=== PATIENT | female | born 1935 | race Caucasian/White ===

== ENCOUNTER → 2016-12-10 | Outpatient (CLI) | payer MEDICARE, OTHER ==
--- NOTE | 2016-12-10 15:38 | RAD ---
EXAM DESCRIPTION: Knee,Right Complete CLINICAL HISTORY: 81 yearsFemale, Bilateral primary osteoarthritis of knee COMPARISON: None. IMPRESSION: Patient is status post right knee arthroplasty. Hardware is appropriately positioned. No fracture noted. No osteolysis. Electronically signed by: Germán Canas MD 12/10/2016 3:37 PM GREENSKEEPER
--- NOTE | 2016-12-10 15:38 | RAD ---
EXAM DESCRIPTION: Knee,Left Complete CLINICAL HISTORY: 81 yearsFemale, Bilateral primary osteoarthritis of knee COMPARISON: None. IMPRESSION: Patient is status post left knee arthroplasty. Hardware is appropriately positioned. No fracture noted. No osteolysis. Electronically signed by: Germán Canas MD 12/10/2016 3:36 PM REPLENISHER
== END | disposition home or self-care (01) ==
LOC: YCFC.O 13:11
PROVIDERS: ATTEND Nurse Practitioner Family
DX: M17.0 Bilateral primary osteoarthritis of knee (principal)

== ENCOUNTER 2017-01-11 05:33 | Day surgery (SDC) | payer MEDICARE, OTHER ==
[2017-01-11] MEDS ORDERED: methylPREDNISolone ACETATE 80 MG/ML VIAL ONE (11:03)
[2017-01-11] MEDS ORDERED: SODIUM BICARBONATE VIAL 50 MEQ/50 ML VIAL ONE (11:03)
[2017-01-11] MEDS ORDERED: SODIUM CHLORIDE 0.9% 10 ML VIAL ONE (11:03)
[2017-01-11] MEDS ORDERED: LIDOCAINE 1% MPF 5 ML VIAL ONE (11:03)
[2017-01-11] MEDS ORDERED: BUPIVACAINE 0.25% W/EPI 50 ML VIAL INJ ONE (13:32)
[2017-01-11 14:03] VITALS: O2SAT 96
[2017-01-11 14:22] VITALS: BP 146/83; TEMP 98.3
== END 2017-01-11 14:05 | disposition home or self-care (01) ==
LOC: AMB 05:33
PROVIDERS: ATTEND Anesthesiology Pain Medicine
DX: M25.562 Pain in left knee (principal); M25.561 Pain in right knee; G89.4 Chronic pain syndrome; M17.0 Bilateral primary osteoarthritis of knee; M81.0 Age-related osteoporosis without current pathological fracture; Z79.899 Other long term (current) drug therapy
CPT/HCPCS: 20610; 76000; 80307; 80354; 80358; 80365; J1030

== ENCOUNTER → 2017-01-11 | Outpatient (CLI) | payer MEDICARE, OTHER | END | disposition home or self-care (01) | LOC: YCFC.O 11:09 | PROVIDERS: ATTEND Anesthesiology Pain Medicine | DX: Z79.891 Long term (current) use of opiate analgesic (principal) ==

== ENCOUNTER 2017-03-08 05:39 | Day surgery (SDC) | payer MEDICARE, OTHER ==
[2017-03-08] MEDS ORDERED: SODIUM BICARBONATE VIAL 50 MEQ/50 ML VIAL ONE (10:13)
[2017-03-08] MEDS ORDERED: SODIUM CHLORIDE 0.9% 10 ML VIAL ONE (10:13)
[2017-03-08] MEDS ORDERED: methylPREDNISolone ACETATE 80 MG/ML VIAL ONE (10:13)
[2017-03-08] MEDS ORDERED: LIDOCAINE 1% MPF 5 ML VIAL ONE (10:13)
[2017-03-08 12:50] VITALS: TEMP 97.3
[2017-03-08] MEDS ORDERED: BUPIVACAINE 0.25% INJ 30 ML VIAL INJ ONE (13:50)
[2017-03-08 14:52] VITALS: BP 206/103; O2SAT 98
== END 2017-03-08 14:10 | disposition home or self-care (01) ==
LOC: AMB 05:39
PROVIDERS: ATTEND Anesthesiology Pain Medicine
DX: M25.562 Pain in left knee (principal); M25.561 Pain in right knee; G51.1 Geniculate ganglionitis; G89.4 Chronic pain syndrome; M17.0 Bilateral primary osteoarthritis of knee; F41.9 Anxiety disorder, unspecified; M81.0 Age-related osteoporosis without current pathological fracture; Z79.899 Other long term (current) drug therapy
CPT/HCPCS: 64450; 76000; J1030

== ENCOUNTER 2017-04-26 06:05 | Day surgery (SDC) | payer MEDICARE, OTHER ==
[2017-04-26] MEDS ORDERED: SODIUM CHLORIDE 0.9% 10 ML VIAL ONE (11:13)
[2017-04-26] MEDS ORDERED: LIDOCAINE 1% MPF 5 ML VIAL ONE (11:14)
[2017-04-26] MEDS ORDERED: methylPREDNISolone ACETATE 80 MG/ML VIAL ONE (11:14)
[2017-04-26] MEDS ORDERED: BUPIVACAINE 0.25% INJ 30 ML VIAL INJ ONE (12:41)
[2017-04-26 14:54] VITALS: BP 195/91; TEMP 97.9; O2SAT 98
== END 2017-04-26 13:00 | disposition home or self-care (01) ==
LOC: AMB 06:05
PROVIDERS: ATTEND Anesthesiology Pain Medicine
DX: M17.0 Bilateral primary osteoarthritis of knee (principal); G58.8 Other specified mononeuropathies; G89.4 Chronic pain syndrome; F41.9 Anxiety disorder, unspecified; M81.0 Age-related osteoporosis without current pathological fracture; Z79.899 Other long term (current) drug therapy
CPT/HCPCS: 64450; J1030

== ENCOUNTER → 2017-05-11 | Outpatient (CLI) | payer MEDICARE, OTHER | END | disposition home or self-care (01) | LOC: YCFC.O 15:36 | PROVIDERS: ATTEND Anesthesiology Pain Medicine | DX: Z79.891 Long term (current) use of opiate analgesic (principal) ==

== ENCOUNTER → 2017-06-08 | Outpatient (CLI) | payer MEDICARE, OTHER | LOC: YCFC.O 10:50 | PROVIDERS: ATTEND Nurse Practitioner Family | DX: R35.0 Frequency of micturition (principal) ==

== ENCOUNTER → 2017-07-08 | Outpatient (CLI) | payer MEDICARE, OTHER | END | disposition home or self-care (01) | LOC: YCFC.O 12:18 | PROVIDERS: ATTEND Nurse Practitioner Family | DX: Z86.2 Personal history of diseases of the blood and blood-forming organs and certain disorders involving the immune mechanism (principal); R53.83 Other fatigue; M81.0 Age-related osteoporosis without current pathological fracture; D51.0 Vitamin B12 deficiency anemia due to intrinsic factor deficiency ==

== ENCOUNTER → 2017-08-10 | Outpatient (CLI) | payer MEDICARE, OTHER | END | disposition home or self-care (01) | LOC: YCFC.O 14:12 | PROVIDERS: ATTEND Anesthesiology Pain Medicine | DX: Z79.891 Long term (current) use of opiate analgesic (principal) ==

== ENCOUNTER → 2018-04-18 | Outpatient (CLI) | payer MEDICARE, OTHER ==
--- NOTE | 2018-04-19 11:58 | RAD ---
EXAM DESCRIPTION: Hip,Right 2 Views CLINICAL HISTORY: 82 years, Female, PAIN IN RIGHT HIP COMPARISON: None TECHNIQUE: AP and frog leg lateral views of the hip FINDINGS: 2 views of the right hip reveal no fracture or dislocation. No lytic bone lesion. Degenerative changes are prominent at the pubic symphysis. IMPRESSION: Negative for fracture or dislocation. Electronically signed by: Danilo Mansfield MD 04/19/2018 11:57 AM CDT
== END ==
LOC: YCFC.O 15:15
PROVIDERS: ATTEND Nurse Practitioner Family
DX: M25.551 Pain in right hip (principal)

== ENCOUNTER → 2018-09-08 | Outpatient (CLI) | payer MEDICARE, OTHER | LOC: LAB.O 14:35 | PROVIDERS: ATTEND Psychiatry & Neurology Neurology | DX: D64.9 Anemia, unspecified (principal); M45.0 Ankylosing spondylitis of multiple sites in spine; M33.90 Dermatopolymyositis, unspecified, organ involvement unspecified; E11.9 Type 2 diabetes mellitus without complications; R53.83 Other fatigue; R50.9 Fever, unspecified; M35.3 Polymyalgia rheumatica; M33.22 Polymyositis with myopathy; G61.81 Chronic inflammatory demyelinating polyneuritis; B02.29 Other postherpetic nervous system involvement; E03.9 Hypothyroidism, unspecified; R51 Headache; G60.3 Idiopathic progressive neuropathy; M35.1 Other overlap syndromes; M54.16 Radiculopathy, lumbar region; I73.00 Raynaud's syndrome without gangrene; M35.00 Sjogren syndrome, unspecified; G47.30 Sleep apnea, unspecified; M31.6 Other giant cell arteritis ==

== ENCOUNTER → 2018-09-19 | Outpatient (CLI) | payer MEDICARE, OTHER ==
--- NOTE | 2018-09-19 16:09 | MRI ---
EXAM DESCRIPTION: Lumbar Spine w/o Contrast : Magnetic Resonance Imaging. CLINICAL HISTORY: M50.123, M51.16 COMPARISON: MRI scan cervical spine without contrast on this visit. TECHNIQUE: Multiplanar, multiple standard sequences, non contrast MRI, lumbar spine. FINDINGS: L5-S1: Disc desiccation and disc space preserved. Left posterior paracentral disc protrusion just above the lateral recess impressing on the descending left S1 nerve. Left paracentral moderate canal narrowing. Small disc fragment enters the left subarticular recess with stenosis. Facet arthrosis right more than left. Minimal flavum ligament hypertrophy. Mild left foraminal narrowing and moderate right foraminal narrowing. L4-5: Disc desiccation and minimal disc space loss. Grade 1 anterolisthesis of 4 mm. Posterior bulge to the right of midline 5 mm abutting the descending L5 nerve in the right subarticular recess. Flavum ligament hypertrophy and minimal left facet arthrosis. Mild canal narrowing. Moderate right foraminal narrowing and mild left foraminal narrowing. L3-4: Mild disc space loss and disc desiccation. Broad-based 4 mm disc bulge. Minimal flavum ligament hypertrophy and facet arthrosis on the right. More disc space loss to the right of midline with disc osteophyte complex bulging laterally borderline right foraminal stenosis. Moderate left foraminal narrowing. Circumscribed hyperintense T1 and T2 signal lesion in the right lateral L3 vertebral body. L2-3: Disc desiccation with minimal anterior bulging. 3 mm grade 1 retrolisthesis with posterior disc bulge into the midline and right paracentral canal and right foramen. Bilateral moderate to severe foraminal narrowing. Minimal arthrosis left with bilateral flavum ligament hypertrophy. Mild canal narrowing. L1-2: Marked disc space loss more anterior with anterior disc osteophyte bulge into the soft tissues. Trace retrolisthesis posterior midline disc osteophyte bulge into the canal. Mild canal narrowing. Bilateral facet arthrosis. Right moderate and left severe foraminal narrowing. Left side and anterior Modic type II endplate reactive changes. Conus terminates at this level. Hyperintense circumscribed small T1 and T2 lesion in the right L1 vertebral body. T12-L1: Normal signal in the disc and disc space preserved. Posterior elements are unremarkable. Canal and foramina are patent. L3-L5 levoscoliosis T11-L2 dextroscoliosis. Paravertebral soft tissues unremarkable.. Otherwise normal marrow signal in the remaining vertebral bodies and the posterior elements. Vertebral bodies are not compressed at any level. IMPRESSION: 1. Multiple levels of disc desiccation, posterior flavum ligament hypertrophy and facet arthrosis, multiple levels of spondylosis, and scoliosis. No compression type vertebral body fractures. Right paracentral L3 and L1 right vertebral body hemangiomas. 2. Left posterior L5-S1 disc herniation with possible disc fragment in the left subarticular recess with stenosis and impingement of the descending left S1 nerve. Correlate for left S1 radiculopathy. 3. Grade 1 anterolisthesis L4-5 with right posterior disc focal bulge abutting the descending right L5 nerve and right subarticular recess. 4. Right side L3-4 disc osteophyte complex bulge into the soft tissues in the right foramen with stenosis. Correlate for right L3 radiculopathy. Moderate right-sided spondylosis. 5. Grade 1 retrolisthesis L2-3 with posterior disc bulge into the midline and right paracentral canal and right foramen with moderate to severe foraminal narrowing. Correlate for right L3 radiculopathy. 6. Diffuse spondylosis L1-2 and degeneration and minimal hypertrophy of the posterior elements. Moderate right foraminal narrowing and severe left foraminal narrowing with left side spondylosis. Correlate for left L1 radiculopathy. Electronically signed by: Austin Duff MD 09/19/2018 4:07 PM SENIOR ELECTRICAL DESIGNER
--- NOTE | 2018-09-19 16:25 | MRI ---
EXAM DESCRIPTION: Cervical Spine: MRI. CLINICAL HISTORY: 82 years Female CERVICAL RADICULOPATHY COMPARISON: MRI scan of the lumbar spine without contrast on this visit. TECHNIQUE: Multiplanar, high-field MRI, multiple sequences, non-contrast Cervical spine. FINDINGS: C3-C4: Posterior broad-based bulge almost abutting the cord. Minimal desiccation. Posterior ligament hypertrophy abutting the posterior cord. Bilateral uncinate spurs and mild neural foraminal narrowing. Facets are negative. C4-C5: Disc desiccation and minimal disc space loss. Grade 1 anterolisthesis. Posterior disc bulge without abutting the cord. Right uncinate spur. Right facet arthrosis with mild to moderate neural foraminal narrowing. Mild left facet arthrosis and neural foraminal narrowing. Diffuse hyperintense signal on T1, T2, and STIR sequences, in the C5 vertebral body, left pedicle and lamina. C5-C6: Disc desiccation and disc space loss. Posterior disc bulge abutting the cord. Bilateral uncinate spurs. Right facet arthrosis. Moderate left neural foraminal narrowing and right neural foraminal stenosis. Posterior flavum ligament hypertrophy. C6-7: Disc desiccation and minimal disc space loss. Grade 1 anterolisthesis. Posterior disc osteophyte bulge abutting the cord. Mild to moderate right neural foraminal narrowing with uncinate spur. Bilateral facets are negative. Mild canal narrowing. C7-T1: Normal signal in the disc with tiny posterior midline bulge. Canal and bilateral neural foramina are patent. Facets are unremarkable. Paravertebral cyst abutting the left neural foramen. Bilateral perineural cysts in the T1-T2 neural foramen with normal disc and no canal stenosis. No facet arthrosis. Normal signal in the C2-C3 disc with no bulging. Disc space preserved. Canal and neural foramina are patent. Facets are negative. Spinal alignment unremarkable. No cord compression or cord edema. Atlantoaxial joint is negative. Base of the cerebellar tonsils is at the level of the foramen magnum. Paravertebral soft tissues unremarkable.. Vertebral bodies are not compressed at any level. Mixed hyperintense and no signal in the T4 vertebral body predominantly on T1 and T2 sequences and minimally on STIR sequences. Otherwise normal marrow signal in the remaining vertebral bodies and the posterior elements. IMPRESSION: 1. Posterior bulge of the C3-C4 disc almost abutting the cord with moderate canal narrowing. Bilateral neural foraminal narrowing but no stenosis. 2. Grade 1 anterolisthesis C4-5 with posterior disc bulge abutting the cord. Moderate narrowing of the right neural foramina. Probable hemangioma in the C5 vertebral body also involving the left pedicle and lamina. No compression deformity. 3. Right C5-C6 facet arthrosis and uncinate spur with right neural foraminal stenosis. Correlate for right C5 radiculopathy. Moderate canal narrowing. Grade 1 anterolisthesis C6-C7. Moderate right neural foraminal narrowing. 4. Probable hemangioma with slightly atypical appearance in the T4 vertebral body. No compression deformity. Electronically signed by: Austin Duff MD 09/19/2018 4:24 PM [facility]
== END ==
LOC: LAB.O 09:21
PROVIDERS: ATTEND Psychiatry & Neurology Neurology
DX: M50.123 Cervical disc disorder at C6-C7 level with radiculopathy (principal); M51.16 Intervertebral disc disorders with radiculopathy, lumbar region; M47.896 Other spondylosis, lumbar region; D64.9 Anemia, unspecified; R51 Headache; M45.0 Ankylosing spondylitis of multiple sites in spine; E11.9 Type 2 diabetes mellitus without complications; R50.9 Fever, unspecified; E03.9 Hypothyroidism, unspecified; G60.9 Hereditary and idiopathic neuropathy, unspecified; M35.1 Other overlap syndromes; M35.3 Polymyalgia rheumatica; M33.22 Polymyositis with myopathy; G61.81 Chronic inflammatory demyelinating polyneuritis; B02.29 Other postherpetic nervous system involvement; I73.00 Raynaud's syndrome without gangrene; G25.89 Other specified extrapyramidal and movement disorders; M35.00 Sjogren syndrome, unspecified; G47.30 Sleep apnea, unspecified; M32.10 Systemic lupus erythematosus, organ or system involvement unspecified; M31.6 Other giant cell arteritis; G50.0 Trigeminal neuralgia; I77.9 Disorder of arteries and arterioles, unspecified

== ENCOUNTER 2019-01-01 06:24 | Emergency (ER) | payer MEDICARE, OTHER ==
[2019-01-01 06:37] VITALS: TEMP 97.7
[2019-01-01] MEDS ORDERED: cloNIDine HCL 0.1 MG TAB PO ONE (07:02)
--- NOTE | 2019-01-01 07:04 | ED.PDOC ---
History of Present Illness - General Chief Complaint: Blood Pressure Problem Stated Complaint: Hypertension Time Seen by Provider: 01/01/19 07:02 Source: patient Exam Limitations: no limitations - History of Present Illness Initial Comments: pt presenting with asymptomatic htn since yesterday. does not check bp at home normally. kids sent her in. very anxious. no sob, cp, palpitations, edema etc. no symptoms. no headache or ams. pt at baseline symptomatically. Timing/Duration: 24 hours Severity: mild Improving Factors: nothing Worsening Factors: nothing Associated Symptoms: denies symptoms Allergies/Adverse Reactions: Allergies NO KNOWN ALLERGY Allergy (Verified 01/01/19 06:51) Home Medications: Ambulatory Orders Lisinopril 10 mg PO DAILY #30 tab 01/01/19 Review of Systems - Review of Systems Constitutional: States: no symptoms reported EENTM: States: no symptoms reported Respiratory: States: no symptoms reported Cardiology: States: no symptoms reported Gastrointestinal/Abdominal: States: no symptoms reported Genitourinary: States: no symptoms reported Musculoskeletal: States: no symptoms reported Skin: States: no symptoms reported Neurological: States: see HPI, other - chornic neuropathy only Endocrine: States: no symptoms reported All other Systems: No Change from Baseline Past Medical History (General) - Patient Medical History Hx Seizures: No Hx Stroke: No Hx Dementia: No Hx Asthma: No Hx of COPD: No Hx Cardiac Disorders: No Hx Congestive Heart Failure: No Hx Pacemaker: No Hx Hypertension: No Hx Thyroid Disease: No Hx Diabetes: No Hx Gastroesophageal Reflux: No Hx Renal Disease: No Hx Cancer: No Hx of HIV: No Hx Hepatitis C: No Hx MRSA: No - Vaccination History Hx Tetanus, Diphtheria Vaccination: No Hx Influenza Vaccination: No Hx Pneumococcal Vaccination: Yes Family Medical History - Family History Mother Family History: Unknown Physical Exam - Physical Exam General Appearance: Alert, Anxious, No apparent distress Eye Exam: bilateral normal Ears, Nose, Throat: hearing grossly normal, normal ENT inspection Neck: full range of motion, supple Respiratory: lungs clear, no respiratory distress, no accessory muscle use Cardiovascular/Chest: normal peripheral pulses, regular rate, rhythm, no edema Peripheral Pulses: radial,right: 2+, radial,left: 2+ Gastrointestinal/Abdominal: non tender, soft Rectal Exam: deferred Back Exam: normal inspection Extremity: normal range of motion, non-tender, no pedal edema, normal capillary refill Neurologic: java developer analyst II-XII nml as tested, alert, normal mood/affect, oriented x 3, other - chornic neuropathy Skin Exam: normal color Comments: Vital Signs - 24 hr 01/01/19 06:36 Temperature 97.7 F Pulse Rate [ 72 monitor] Respiratory 18 Rate Blood Pressure 217/79 [Right Arm] O2 Sat by Pulse 96 Oximetry repeat bp's once relaxed avg 170/100 Progress - Progress Progress: 01/01/19 07:05 pt here with asymptomatic htn. given a dose of clonidine and will discharge due to no symptoms, as per current abem recommendations. will place on lisinopril 10mg daily and pt will follow up with her pcp this coming week. er warnings for any significant worsening. anxiety is likely contributing somewhat to her peak blood pressures. Departure - Departure Clinical Impression: Chronic hypertension Disposition: Discharge to Home or Self Care Condition: Fair Departure Forms: ED Discharge - Pt. Copy, Patient Portal Self Enrollment Diet: low salt diet Activity: increase activity as tolerated Referrals: Maureen Cobb NP [Primary Care Provider] - 1-2 Weeks Prescriptions: Lisinopril 10 mg PO DAILY #30 tab Home Medications: Ambulatory Orders Lisinopril 10 mg PO DAILY #30 tab 01/01/19 Additional Instructions: pt here with asymptomatic htn. given a dose of clonidine and will discharge due to no symptoms, as per current abem recommendations. will place on lisinopril 10mg daily and pt will follow up with her pcp this coming week. er warnings for any significant worsening. anxiety is likely contributing somewhat to her peak blood pressures.
[2019-01-01 07:09] VITALS: BP 194/93; O2SAT 95
== END 2019-01-01 07:09 | disposition home or self-care (01) ==
LOC: ER 06:24
DX: I10 Essential (primary) hypertension (principal); Z79.899 Other long term (current) drug therapy